=== PATIENT | male | born 1985 | race Two or more races ===

== ENCOUNTER 2024-05-07 13:01 | Emergency (ER) | payer BC, MEDICAID, SELFPAY ==
[2024-05-07 13:41] VITALS: BP 124/77; PULSE 68; RESP 18; TEMP 36.6; O2SAT 99; BMI 37.8
--- NOTE | 2024-05-07 13:47 | XR_ITS ---
Examination: PA chest single view Technique: Upright PA chest single view Exam date and time: May 07, 2024 1405 hrs. Indications: Shortness of breath with chest pain beginning one week ago. Findings: Normal heart size. Lungs are clear. The osseous structures are intact Impression: No active disease
--- NOTE | 2024-05-07 13:48 | EKG_ITS ---
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
--- NOTE | 2024-05-07 13:48 | PD.EDADULT ---
ED General RME/HPI General Chief complaint: Abdominal Pain Stated complaint: UPPER LEFT AB PAIN -LEFT BACK Time Seen by Provider: 05/07/24 13:45 Arrival date/time: 05/07/24 13:01 CC: Left chest wall pain left upper quadrant abdominal pain HPI onset 5 days ago progressive increase in severity house however states that he is able to sleep through the night no OTC medicines taken no prior history of similar events. Denies fever chills shortness of breath cough nausea or vomiting. Related Data Previous Rx's ?Medication ?Instructions ?Recorded acetaminophen 500 mg tablet 1,000 mg (2 x 500 mg) PO QID PRN 02/06/24 fever or pain #20 tabs ibuprofen 800 mg tablet 800 mg PO Q6H PRN pain #14 tabs 02/06/24 gabapentin 100 mg capsule 100 mg PO BID #20 caps 05/07/24 meloxicam 7.5 mg tablet 7.5 mg PO QDAY #10 tabs 05/07/24 Allergies Allergy/AdvReac Type Severity Reaction Status Date / Time amoxicillin [From Augmentin] Allergy Verified 05/07/24 13:03 clavulanic acid Allergy Verified 05/07/24 13:03 [From Augmentin] Review of Systems Review of Systems Narrative Review of Systems: GEN: No fever, no chills, no weight loss EYES: No discharge, no visual changes, no pain HEENT: No ear pain, no congestion, no sore throat PULM: No shortness of breath, no cough, no congestion CV: + chest pain, no dyspnea on exertion, no palpitations GI: No nausea, no vomiting, no diarrhea, + left upper quadrant pain, no constipation : No frequency, no urgency, no dysuria MUSC/SKEL: No joint pain, no back pain SKIN: No rash PSYCH: No hallucinations, no depression HEME/LYMPH: No easy bleeding or bruising tendencies NEURO: No weakness, no headache Past Medical History Social History SMOKING STATUS: Never smoker ED Exam Narrative Physical exam: [General: Obese not in any acute distress Head normocephalic HEENT: Within acceptable limits Neck is supple nontender Chest equal chest rise left anterior chest wall tenderness with palpation no obvious rash induration ulceration. Respiratory: Clear to auscultation no wheezes crackles or rubs CV: Rate rhythm is regular no murmurs rubs or clicks Abdomen is distended secondary to body habitus soft mild left upper quadrant abdominal tenderness Back: No CVA tenderness no spinous process tenderness from cervical spine thoracic and lumbar spine Skin: Intact no petechiae rash induration ulceration or crepitus Extremities: Moving all extremity against resistance cap refill less than 2 seconds neurosensory intact Neuro: Awake alert oriented x3 Glascow coma 15 no focal deficits] Course Quality Measures none Orders Category Date Time Status EKG (ED ONLY) *Do not use* NOW Care 05/07/24 13:48 Completed CXR [XR chest 1V] Stat Exams 05/07/24 13:47 Completed EKG (ED Only) Stat Exams 05/07/24 13:48 Draft B-Type Natriuretic Peptide Stat Lab 05/07/24 14:00 Completed CBC Stat Lab 05/07/24 14:00 Completed Comprehensive Metabolic Panel Stat Lab 05/07/24 14:00 Completed Drug Screen,Urine Stat Lab 05/07/24 13:59 Completed Lipase Stat Lab 05/07/24 14:00 Completed Magnesium Stat Lab 05/07/24 14:00 Completed Partial Thromboplastin Time Stat Lab 05/07/24 14:00 Completed Prothrombin Time with INR Stat Lab 05/07/24 14:00 Completed Urinalysis Stat Lab 05/07/24 13:59 Completed Vital Signs Vital signs: Vital Signs Temperature 97.8 F 05/07/24 13:41 Pulse Rate 68 05/07/24 13:41 Respiratory Rate 18 05/07/24 13:41 Blood Pressure 124/77 05/07/24 13:41 Pulse Oximetry (%) 99 05/07/24 13:41 Oxygen Delivery Method Room Air 05/07/24 13:41 [facility] [place] Patient data External records reviewed:: [facility] previous records Clinical information provided by:: patient Social determinants that could affect healthcare access:: none Patient has the following chronic illnesses:: Obesity How is presenting disease/condition affected by chronic disease/condition?: uneffected by Evaluation data The following diagnostics were reviewed and interpreted by me:: lab results, radiology exam(s) and EKG tracing(s) Lab and/or radiology exams considered but not ordered:: EKG performed at 1351 shows a ventricular rate of 64 NH interval 136 QRS of 10 QTc of The Sinus Rhythm. CBC shows no acute leukocytosis or thrombocytopenia CMP shows no acute electrolyte imbalances renal impairment transaminitis or T. bili elevation Troponin is negative Lipase is 44 Chest x-ray is unremarkable for any acute finding requires emergent immediate intervention. Interpretation Summary: I suspect this is all pleuritic chest wall pain or hyperesthesias. Patient will be put on medication discharged home. Medications Medications considered but not ordered:: None Medication administrations:: None Consultations Consultation(s) initiated? (list below): No Diagnosis Differential Diagnosis ED Complaint MDM: ACS DC pneumonia Most likely diagnosis given after review of the tests above:: Chest wall pain Admission Indicated Admission indicated?: not indicated Explain why admission is indicated or not indicated:: Stable for outpatient follow-up Admission Request Was there a request for admission?: No Disposition Plan Disposition Plan: Discharge Discharge Attestation Discharge Attestation: The patient and all family members were given an opportunity to ask questions and understood the discharge instructions. Discharge instructions specifically effects, indications for sooner follow up or return to the emergency department, and the expected course of current diagnosis. Patient condition: Stable Medical Decision Making Differential Diagnosis Differential Diagnosis: ACS DC pneumonia Lab Data 05/07/24 14:00 05/07/24 14:00 Labs: Lab Results 05/07/24 05/07/24 Range/Units 13:59 14:00 WBC 6.9 (3.8-10.6) Thou/mm3 RBC 4.99 (4.50-5.90) Miln/mm3 Hgb 14.5 (13.5-16.0) g/dL Hct 42.5 (41.0-53.0) % MCV 85 (80-100) fL MCH 29.1 (25.0-35.0) pg MCHC 34.1 (31.0-37.0) g/dl RDW Std Deviation 43.0 (35.1-43.9) fL Plt Count 223 (140-440) Thou/mm3 Neut % (Auto) 64 (37-80) % Lymph % (Auto) 24 (10-50) % [place] % (Auto) 10 (0-12) % Eos % (Auto) 2 (0-10) % Baso % (Auto) 0 (0-2.5) % Neut # (Auto) 4.4 (1.8-7.7) Thou/mm3 Lymph # (Auto) 1.7 (1.0-4.8) Thou/mm3 [place] # (Auto) 0.7 (0.0-0.8) Thou/mm3 Eos # (Auto) 0.1 (0.0-0.5) Thou/mm3 Baso # (Auto) 0.0 (0.0-0.2) Thou/mm3 Immature Gran # (Auto) 0.02 H (0.00-0.00) Thou/mm3 Absolute Nucleated RBC 0.00 (0.00-0.00) Thou/mm3 Immature Gran % 0 (0-0) % Nucleated RBC % 0 (0) /100 WBC PT 10.3 (9.0-12.2) Seconds INR 0.9 (0.9-1.3) APTT 26.7 (22.0-36.0) Seconds Sodium 139 (136-145) mMol/L Potassium 4.0 (3.4-5.1) mMol/L Chloride 104 (98-107) mMol/L Carbon Dioxide 30.6 (20.0-31.0) mMol/L Anion Gap 4 L (7-16) BUN 16 (9-23) mg/dL Creatinine 0.9 (0.6-1.3) mg/dL Estim Creat Clear Calc 145.6 (>60) mL/min eGFR > 60 (60 - ) See Note BUN/Creatinine Ratio 18 (12-20) Ratio Glucose 59 L (74-106) mg/dL Calculated Osmolality 276 (275-295) Calcium 9.9 (8.3-10.6) mg/dL Corrected Calcium 9.9 (8.5-10.1) mg/dL Magnesium 1.9 (1.6-2.6) mg/dL Total Bilirubin 0.3 (0.3-1.2) mg/dL AST 18 (0-34) U/L ALT 28 (10-49) U/L Alkaline Phosphatase 127 H (46-116) U/L B-Natriuretic Peptide < 20 (0-100) pg/mL Total Protein 7.9 (5.7-8.2) gm/dL Albumin 4.7 (3.5-5.0) gm/dL Globulin 3.2 (2.3-3.5) gm/dL Albumin/Globulin Ratio 1.5 (1.2-2.2) Lipase 44 (12-53) U/L Ur Collection Type Clean Catch Urine Color Lt-Yellow (Lt Yel-Yel) Urine Clarity Clear (Clear/Hazy) Urine pH 6.0 (5.0-7.0) Ur Specific [place] 1.030 (1.001-1.035) Urine Protein Trace (Neg - Trace) Urine Glucose (UA) Negative (Negative) Urine Ketones Negative (Negative) Urine Blood Negative (Negative) Urine Nitrite Negative (Negative) Urine Bilirubin Negative (Negative) Urine Urobilinogen (Auto) Negative (0.0-1.0) mg/dL Ur Leukocyte Esterase Negative (Negative) Urine RBC 1 (0-3) /hpf Urine WBC 1 (0-5) /hpf Ur Squamous Epith Cells 0 (0-5) /hpf Urine Bacteria None (None) Urine Opiates Screen Negative (Negative) Urine Fentanyl Screen Negative (Negative) Ur Barbiturates Screen Negative (Negative) U Amphetamin/Meth Scrn Negative (Negative) U Benzodiazepines Scrn Negative (Negative) U Cocaine Metab Screen Negative (Negative) U Marijuana (THC) Screen Negative (Negative) Discharge Plan Plan Patient Disposition: HOME (Self Care) Patient condition on transfer: Stable Prescriptions/Referrals Prescriptions/Med Rec: New meloxicam 7.5 mg tablet 7.5 mg PO QDAY Qty: 10 0RF gabapentin 100 mg capsule 100 mg PO BID Qty: 20 0RF No Action ibuprofen 800 mg tablet 800 mg PO Q6H PRN (Reason: pain) Qty: 14 0RF acetaminophen 500 mg tablet 1,000 mg PO QID PRN (Reason: fever or pain) Qty: 20 0RF Referrals: Navdeep Addison MD [Physician] - In 1 week Problem List Clinical Impression: Chest wall pain, Hyperesthesia Patient/Caregiver Discharge Instructions Education Materials: ED Chest Pain, Noncardiac Additional Instructions: Take the medications for chest wall pain if there is worsening of symptoms follow-up with your primary care provider and return the emergency room for reevaluation. Print Language: Lithuanian Stand Alone Forms: Alecia Award Info., Patient Portal Info Letter Attestation Attestation The patient was seen by the midlevel practitioner. I, the co-signing physician, was present during the entire ER visit. While I did not physically examine the patient, I was available for consultation as needed.
[2024-05-07 14:07] LABS: Collection Type, Urine Clean Catch; Squamous Epithelial Cell,Urine 0 /hpf (0-5)
[2024-05-07 14:11] LABS: Basophils % (Auto) 0 % (0-2.5); Eosinophils # (Auto) 0.1 Thou/mm3 (0.0-0.5); Eosinophils % (Auto) 2 % (0-10); Hematocrit 42.5 % (41.0-53.0); Hemoglobin 14.5 g/dL (13.5-16.0); Immature Granulocytes % (Auto) 0 % (0-0); Immature Granulocytes Auto 0.02 Thou/mm3 (0.00-0.00); Lymphocytes # (Auto) 1.7 Thou/mm3 (1.0-4.8); Lymphocytes % (Auto) 24 % (10-50); Mean Corpuscular HGB Conc 34.1 g/dl (31.0-37.0); Mean Corpuscular Hemoglobin 29.1 pg (25.0-35.0); Mean Corpuscular Volume 85 fL (80-100); Monocytes # (Auto) 0.7 Thou/mm3 (0.0-0.8); Monocytes % (Auto) 10 % (0-12); Neutrophils # (Auto) 4.4 Thou/mm3 (1.8-7.7); Neutrophils % (Auto) 64 % (37-80); Nucleated Red Blood Cell % 0 /100 WBC (0); Platelet Count 223 Thou/mm3 (140-440); Red Blood Count 4.99 Miln/mm3 (4.50-5.90); White Blood Count 6.9 Thou/mm3 (3.8-10.6)
[2024-05-07 14:15] LABS: Bilirubin,Urine Negative (Negative); Blood,Urine Negative (Negative); Clarity,Urine Clear (Clear/Hazy); Color,Urine Lt-Yellow (Lt Yel-Yel); Glucose, Urine Negative (Negative); Ketones,Urine Negative (Negative); Leukocyte Esterase,Urine Negative (Negative); Nitrite,Urine Negative (Negative); Protein,Urine Trace (Neg - Trace); RBC,Urine 1 /hpf (0-3); Urobilinogen,Urine Negative mg/dL (0.0-1.0); WBC,Urine 1 /hpf (0-5)
[2024-05-07 14:22] LABS: Amphetamine/Methamp Scrn,U Negative (Negative); Barbiturate Screen,Urine Negative (Negative); Benzodiazepines Screen,Urine Negative (Negative); Benzoylecgonine Screen, Ur Negative (Negative); Fentanyl Screen,Urine Negative (Negative); Opiate Screen,Urine Negative (Negative); THC Screen,Urine Negative (Negative)
[2024-05-07 14:28] LABS: Alanine Aminotransferase 28 U/L (10-49); Albumin, Serum 4.7 gm/dL (3.5-5.0); Albumin/Globulin Ratio 1.5 (1.2-2.2); Alkaline Phosphatase 127 U/L (46-116); Anion Gap 4 (7-16); Aspartate Amino Transferase 18 U/L (0-34); B-Type Natriuretic Peptide < 20 pg/mL (0-100); BUN/Creatinine Ratio 18 Ratio (12-20); Bilirubin,Total 0.3 mg/dL (0.3-1.2); Blood Urea Nitrogen 16 mg/dL (9-23); Calcium 9.9 mg/dL (8.3-10.6); Calcium (Corrected) 9.9 mg/dL (8.5-10.1); Carbon Dioxide 30.6 mMol/L (20.0-31.0); Chloride 104 mMol/L (98-107); Creatinine (Component) 0.9 mg/dL (0.6-1.3); Estimated Creatinine Clearance 145.6 mL/min (>60); Globulin 3.2 gm/dL (2.3-3.5); Glucose 59 mg/dL (74-106); INR 0.9 (0.9-1.3); Lipase 44 U/L (12-53); Magnesium 1.9 mg/dL (1.6-2.6); Osmolality,Calculated 276 (275-295); Partial Thromboplastin Time 26.7 Seconds (22.0-36.0); Prothrombin Time 10.3 Seconds (9.0-12.2); Sodium 139 mMol/L (136-145); Total Protein 7.9 gm/dL (5.7-8.2); eGFR > 60 See Note
== END 2024-05-07 15:32 | disposition home or self-care (01) ==
PROVIDERS: Registered Nurse General Practice; Emergency Provider Emergency Medicine
DX: R07.89 Other chest pain (principal); R20.3 Hyperesthesia; R06.02 Shortness of breath; R10.12 Left upper quadrant pain
CPT/HCPCS: 36415; 71045; 80053; 80307; 81001; 83690; 83735; 83880; 85025; 85610; 85730; 93005; 99283